=== PATIENT | male | born 1980 | race Asian ===

== ENCOUNTER 2019-08-15 02:47 | Emergency (ER) | payer OTHER ==
[2019-08-15 05:39] VITALS: BP 114/74; PULSE 88; TEMP 98.3; BMI 29.4
--- NOTE | 2019-08-15 08:19 | PDOC ---
History of Present Illness - General Chief Complaint: Pain, Acute Stated Complaint: LEFT KNEE PAIN History Source: Patient Exam Limitations: No Limitations - History of Present Illness Initial Comments: 08/15/19 08:02 Patient is a 38M with history of recent corneal repair here today complaining of left knee pain. Patient reports that his knee started hurting yesterday during a cricket game. He states that he was walking when his knee suddenly started feeling sore. Denies direct impact trauma to the area. Patient has been able to ambulate. No history of prior knee problems. Past History - Past Medical History Allergies/Adverse Reactions: Allergies Allergy/AdvReac Type Severity Reaction Status Date / Time No Known Allergies Allergy Verified 08/15/19 05:39 Home Medications: Ambulatory Orders Naproxen [Naprosyn -] 500 mg PO BID #20 tablet 09/15/15 - Psycho Social/Smoking Cessation Hx Smoking History: Never smoked Hx Alcohol Use: No Drug/Substance Use Hx: No Substance Use Type: None Review of Systems - Review of Systems Able to Perform ROS?: Yes Comments:: 08/15/19 08:20 GENERAL/CONSTITUTIONAL: No fever or chills. No weakness. GASTROINTESTINAL: No nausea, vomiting, diarrhea or constipation. GENITOURINARY: No dysuria, frequency, or change in urination. MUSCULOSKELETAL: +L knee pain. No neck or back pain. SKIN: No rash NEUROLOGIC: No headache, vertigo, loss of consciousness, or change in strength/ sensation. ALLERGIC/IMMUNOLOGIC: No hives or skin allergy. *Physical Exam - Vital Signs Last Vital Signs Temp Pulse Resp BP Pulse Ox 98.3 F 88 16 114/74 98 08/15/19 02:55 08/15/19 02:55 08/15/19 02:55 08/15/19 02:55 08/15/19 02:55 - Physical Exam 08/15/19 08:20 GENERAL: Awake, alert, and fully oriented, in no acute distress L KNEE: Stable joint, small effusion, nontender. - drawer tests. Neurovascularly intact distal to injury HEAD: No signs of trauma, normocephalic, atraumatic EYES: PERRLA, EOMI, sclera anicteric, conjunctiva clear ENT: Auricles normal inspection, hearing grossly normal, nares patent, oropharynx clear without exudates. Moist mucosa NECK: Normal ROM, supple, no lymphadenopathy, JVD, or masses NEUROLOGICAL: Cranial nerves II through XII grossly intact. Normal speech, normal gait, no focal sensorimotor deficits SKIN: Warm, Dry, normal turgor, no rashes or lesions noted. Medical Decision Making - Medical Decision Making 08/15/19 08:21 Patient is 38M here today with knee pain. Vitals normal and stable. Low risk injury, concern more for sprain vs ligament tear. X-ray shows no fracture or dislocation. Will discharge home with instructions for RICE and ortho follow up. Discharge - Discharge Information Problems reviewed: Yes Clinical Impression/Diagnosis: Knee pain Qualifiers: Chronicity: acute Laterality: left Qualified Code(s): M25.562 - Pain in left knee Condition: Fair Disposition: HOME - Admission No - Follow up/Referral Referrals: Rad Meek MD [Primary Care Provider] - Yasmani Vasques MD [Staff Physician] - - Patient Discharge Instructions Patient Printed Discharge Instructions: DI for Knee Pain Additional Instructions: Please call the orthopedic doctor below today for further follow up on your knee. Please return if you have any new, worsening or concerning symptoms. - Post Discharge Activity
--- NOTE | 2019-08-15 08:42 | PDOC ---
Attending Attestation - Resident Resident Name: Ever Mendez - ED Attending Attestation I have performed the following: I have examined & evaluated the patient, The case was reviewed & discussed with the resident, I agree w/resident's findings & plan - HPI HPI: 08/15/19 08:39 38y/o M with L knee pain for 3-4 days. Pt was playing cricket when he felt some discomfort to L knee, no direct injury. Since then has had discomfort and "stiffness" sensation without motor/sensory deficit. no h/o knee surgery, did not take any medications or ice. Applied support bandage, presents for persistent sxs. no redness/fever. - Physicial Exam PE: 08/15/19 08:40 vss well appearing L knee: no deformity or skin changes or warmth. small effusion, no focal bony ttp. FROM slightly limited at extreme flexion 2/2 pain, otherwise full strength. stable on anterior/posterior/valgus/varus stress. nvi distally, no edema/calf ttp - Medical Decision Making 08/15/19 08:41 38y/o M with L knee pain and small effusion, nvi without focal abnormality. presentation most c/w sprain, r/o fracture. no evidence of infectious or vascular process. xray wnl RICE/nsaids/ortho referral. ambulating comfortably, no indication for crutches. understands return criteria
== END 2019-08-15 08:30 | disposition home or self-care (01) ==
LOC: JER 02:47
DX: S83.8X2A Sprain of other specified parts of left knee, initial encounter (principal); M25.462 Effusion, left knee; X50.9XXA Other and unspecified overexertion or strenuous movements or postures, initial encounter; Y93.69 Activity, other involving other sports and athletics played as a team or group; Y92.328 Other athletic field as the place of occurrence of the external cause; Y99.8 Other external cause status
CPT/HCPCS: 73562-TC-LT-FY; 99281-25